=== PATIENT | female | born 1955 | race Caucasian/White ===

== ENCOUNTER 2020-10-09 19:54 | Emergency (ER) | payer SELFPAY ==
[2020-10-09 20:39] LABS: BASOPHILS # (AUTO) 0.1 10^3/uL (0.0-0.1); BASOPHILS % (AUTO) 0.8 %; EOSINOPHILS # (AUTO) 0.1 10^3/uL (0.0-0.7); EOSINOPHILS % (AUTO) 1.1 %; HCT - HEMATOCRIT 38.6 % (37.0-47.0); HGB - HEMOGLOBIN 13.1 g/dL (12.0-16.0); LYMPHOCYTES # (AUTO) 2.8 10^3/uL (1.5-3.5); LYMPHOCYTES % (AUTO) 43.1 %; MEAN CORPUSCULAR HEMOGLOBIN 31.5 pg (27.0-31.0); MEAN CORPUSCULAR HGB CONC 33.9 g/dL (32.0-36.0); MEAN CORPUSCULAR VOLUME 92.8 fL (81.0-99.0); MEAN PLATELET VOLUME 8.7 fL (7.9-10.8); MONOCYTES # (AUTO) 0.4 10^3/uL (0.0-1.0); MONOCYTES % (AUTO) 6.8 %; NEUTROPHILS # (AUTO) 3.1 10^3/uL (1.5-6.6); NEUTROPHILS % (AUTO) 47.9 %; PLT - PLATELET COUNT 372 10^3/uL (130-450); RED BLOOD COUNT 4.16 10^6/uL (4.20-5.40); RED CELL DISTRIBUTION WIDTH 11.9 % (12.0-15.0); WHITE BLOOD COUNT 6.5 x10^3/uL (4.8-10.8)
[2020-10-09 20:51] LABS: ALBUMIN 4.6 g/dL (3.2-5.5); ALBUMIN/GLOBULIN RATIO 1.5 (1.0-2.2); BILIRUBIN,TOTAL 0.9 mg/dL (0.2-1.0); CALCIUM 9.8 mg/dL (8.5-10.3); CREATININE 0.7 mg/dL (0.4-1.0); POTASSIUM 3.7 mmol/L (3.5-5.0); TOTAL PROTEIN 7.6 g/dL (6.7-8.2)
--- NOTE | 2020-10-09 20:51 | ED Physician Documentation ---
PD HPI ABD PAIN - Stated complaint Stated Complaint: ABD PX - Chief complaint Chief Complaint: Abd Pain - History obtained from History obtained from: Patient - Additional information Additional information: 65-year-old woman with history of remote cholecystectomy has had 3 days of generally worsening but waxing and waning right middle abdominal and lower quadrant pain with mild nausea and decreased appetite as well as some chills. She has had her gallbladder out remotely. No other abdominal surgeries. Mild nausea. No changes in bowel movements. No urinary complaints. Review of Systems Ten Systems: 10 systems reviewed and negative Constitutional: reports: Chills Cardiac: denies: Chest pain / pressure, Palpitations Respiratory: denies: Dyspnea, Cough GI: reports: Abdominal Pain, Nausea. denies: Vomiting PD PAST MEDICAL HISTORY - Past Medical History Past Medical History: No - Past Surgical History Past Surgical History: Yes General: Cholecystectomy - Present Medications Home Medications: Ambulatory Orders Medication Instructions Recorded Confirmed Cefdinir 300 mg PO BID #20 cap 10/09/20 - Allergies Allergies/Adverse Reactions: Allergies Allergy/AdvReac Type Severity Reaction Status Date / Time No Known Drug Allergies Allergy Verified 10/09/20 20:16 - Social History Does the pt smoke?: No Smoking Status: Never smoker Does the pt drink ETOH?: Yes Does the pt have substance abuse?: No - Immunizations Immunizations are current?: Yes - POLST Patient has POLST: No PD ED PE NORMAL - Vitals Vital signs reviewed: Yes - General General: Alert and oriented X 3, No acute distress - HEENT HEENT: PERRL, EOMI - Neck Neck: Supple, no meningeal sign, No bony TTP - Cardiac Cardiac: RRR, No murmur - Respiratory Respiratory: No respiratory distress, Clear bilaterally - Abdomen Abdomen: Normal bowel sounds, Soft, Other (Mod RLQ TTP, No G/R/M) - Back Back: No CVA TTP, No spinal TTP - Derm Derm: Normal color, Warm and dry - Extremities Extremities: No edema, No calf tenderness / cord - Neuro Neuro: Alert and oriented X 3, Normal speech Results - Vitals Vitals: Vital Signs - 24 hr 10/09/20 10/09/20 20:10 20:41 Temperature 36.8 C Heart Rate 68 67 Respiratory 16 16 Rate Blood Pressure 158/61 H 139/88 H O2 Saturation 100 100 Oxygen O2 Source Room air - Labs Labs: Laboratory Tests 10/09/20 10/09/20 10/09/20 20:31 20:31 21:00 WBC 6.5 RBC 4.16 L Hgb 13.1 Hct 38.6 MCV 92.8 MCH 31.5 H MCHC 33.9 RDW 11.9 L Plt Count 372 MPV 8.7 Neut # (Auto) 3.1 Lymph # (Auto) 2.8 [place] # (Auto) 0.4 Eos # (Auto) 0.1 Baso # (Auto) 0.1 Absolute Nucleated RBC 0.00 Nucleated RBC % 0.0 Sodium 139 Potassium 3.7 Chloride 104 Carbon Dioxide 25 Anion Gap 10.0 BUN 11 Creatinine 0.7 Estimated GFR (MDRD) 84 L Glucose 104 H Calcium 9.8 Total Bilirubin 0.9 AST 20 ALT 23 Alkaline Phosphatase 78 Total Protein 7.6 Albumin 4.6 Globulin 3.0 Albumin/Globulin Ratio 1.5 Lipase 43 Urine Color YELLOW Urine Clarity CLEAR Urine pH 6.0 Ur Specific [place] <=1.005 Urine Protein NEGATIVE Urine Glucose (UA) NEGATIVE Urine Ketones NEGATIVE Urine Occult Blood SMALL H Urine Nitrite NEGATIVE Urine Bilirubin NEGATIVE Urine Urobilinogen 0.2 (NORMAL) Ur Leukocyte Esterase MODERATE H Urine RBC 6-10 H Urine WBC 11-25 H Ur Squamous Epith Cells FEW Squamous Urine Bacteria Few Ur Microscopic Review INDICATED Urine Culture Comments INDICATED PD MEDICAL DECISION MAKING - ED course ED course: 65-year-old woman with 3 days of right-sided abdominal pain radiating to back. Exam tender here but not peritoneal but was reported to be peritoneal at the urgent care prior to arrival. She has a normal white count, CT with potential stool load and hepatic steatosis. She does have a positive UA and this could be considered consistent with pyelonephritis given the clinical circumstances. Departure - Departure Disposition: Home, Self Care Clinical Impression: Pyelonephritis Abdominal pain Qualifiers: Abdominal location: right lower quadrant Qualified Code(s): R10.31 - Right lower quadrant pain Condition: Good Record reviewed to determine appropriate education?: Yes Instructions: Pyelonephritis Dc Prescriptions: Cefdinir 300 mg PO BID #20 cap Comments: As discussed, lab work-up today was unremarkable. You do have evidence of urinary tract infection and given her symptoms this may represent pyelonephritis. We will call if urine culture shows a resistant antibiotic and to 300 return to work
[2020-10-09] MEDS ORDERED: IOPAMIDOL-300 100 ML VIAL ONE (20:54)
[2020-10-09 21:15] LABS: BILIRUBIN,URINE NEGATIVE (NEGATIVE); GLUCOSE, URINE (UA) NEGATIVE (NEGATIVE); KETONES,URINE (UA) NEGATIVE (NEGATIVE); LEUKOCYTE ESTERASE, URINE MODERATE (NEGATIVE); NITRITE,URINE NEGATIVE (NEGATIVE); OCCULT BLOOD,URINE SMALL (NEGATIVE); PROTEIN,URINE NEGATIVE (NEGATIVE); UROBILINOGEN,URINE 0.2 (NORMAL) E.U./dL (NORMAL)
[2020-10-09 21:19] LABS: CLARITY,URINE CLEAR (CLEAR)
[2020-10-09] MEDS ORDERED: IOPAMIDOL-300 100 ML VIAL IVP ONE (21:20)
[2020-10-09 21:37] LABS: BACTERIA,URINE Few /HPF (None Seen); SQUAMOUS EPITHELIAL CELL,UR FEW Squamous (<= Few)
--- NOTE | 2020-10-09 21:42 | CT Report ---
PROCEDURE: Abdomen/Pelvis W INDICATIONS: V only, RLQ pain CONTRAST: IV CONTRAST: Isovue 300 ml: 100 PO CONTRAST: *NO PO CONTRAST TECHNIQUE: After the administration of IV contrast, 5 mm thick sections acquired from the diaphragms to the symp hysis. 5 mm thick coronal and sagittal reformats were acquired. For radiation dose reduction, the f ollowing was used: automated exposure control, adjustment of mA and/or kV according to patient size. COMPARISON: None. FINDINGS: ABDOMEN: Lung bases: Normal Liver: Hepatic steatosis incidentally noted. Spleen: Normal Gallbladder: Surgically absent Bile ducts: Normal Pancreas: Normal Adrenals: Normal Kidneys: Normal Stomach: Normal. Bowel: Normal. Large amount of stool is present. Other: No free fluid or air. Colonic diverticulosis incidentally noted without evidence of acute inf lammation. Appendix: Normal. Abdominal nodes: Normal Aorta: Normal IVC: Normal Ventral wall: No hernias PELVIS: Bladder: Normal Pelvic nodes: Normal Inguinal: No hernia. Bones: No vertebral body compression fracture. No suspicious bone lesion IMPRESSION: Normal appendix. No acute abnormality. Additional chronic and incidental findings as above. Reviewed by: Javier Alberto MD on 10/09/2020 9:40 PM PDT Approved by: Javier Alberto MD on 10/09/2020 9:40 PM PDT Station ID: [id number]
[2020-10-09 23:24] VITALS: BP 131/93
== END 2020-10-09 22:14 | disposition home or self-care (01) ==
LOC: ED 19:54
DX: N12 Tubulo-interstitial nephritis, not specified as acute or chronic (principal); R10.31 Right lower quadrant pain; K76.0 Fatty (change of) liver, not elsewhere classified; K57.30 Diverticulosis of large intestine without perforation or abscess without bleeding; Z90.49 Acquired absence of other specified parts of digestive tract
CPT/HCPCS: 36415; 74177; 80053; 81001; 83690; 85025; 87086; 99284; A9270; Q9967; 81003